=== PATIENT | male | born 1965 | race Two or more races ===

== ENCOUNTER 2024-11-04 15:35 | Inpatient (IN) | payer MEDICAID, SELFPAY ==
[2024-11-04] VITALS (8 sets, daily range): BP systolic 104–163; BP diastolic 74–90; PULSE 100–110; RESP 18–42; TEMP 36.6–37.7; O2SAT 90–95; BMI 30.4
--- NOTE | 2024-11-04 15:44 | XR_ITS ---
Examination: CTA chest with intravenous contrast 2-D reconstructions 3-D reconstructions, vascular Date and time of exam: November 04, 2024 1758 hours INDICATIONS: Shortness of breath chest pain beginning 5 days ago CTDI: vol (mGy) 24.2 DLP: (mGycm) 459 Technique: Multiple axial sections of the thorax have been obtained. 3 mm slice thickness, from below the hemidiaphragms to above the apices of the lungs. Mediastinal and lung density settings have been obtained. 2-D sagittal and coronal reconstructions. 3-D angiographic renderings, 3-D volume renderings, 3D post processing, vascular maximum intensity projections obtained. Contrast administered is 100 cc Isovue 370 intravenous. Low dose protocols were performed. One or more of the following dose reduction techniques were used; automated exposure control, adjustment of the mA and/or KV according to patient size, use of iterative reconstruction technique. Findings: No thoracic aortic aneurysm dilatation or dissection No pulmonary artery emboli Mild right hilar lymphadenopathy Bilateral pneumonia, severe and diffuse in the right lung Large left pleural effusion with atelectasis left lower lobe Liver irregular contour, no liver lesions Spleen is not enlarged Gallbladder partly visualized not distended No pancreatic mass The osseous structures are intact IMPRESSION: Negative for pulmonary emboli Bilateral pneumonia, severe and diffuse in the right lung Large left pleural effusion with atelectasis left lower lobe Primary hepatocellular disease
--- NOTE | 2024-11-04 15:44 | EKG_ITS ---
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
--- NOTE | 2024-11-04 15:44 | XR_ITS ---
Examination: AP chest single view Technique one AP portable upright chest single view Date and time: November 04, thousand 25, 1546 hours INDICATIONS: Chest pain shortness of breath weakness today. FINDINGS: Extensive bilateral pneumonia Suspicious for significant left pleural fluid Moderate osteopenia Mild enlargement cardiac contour IMPRESSION: Extensive bilateral pneumonia, Consider ultrasound left hemithorax to confirm significant left pleural fluid
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
[2024-11-04 16:27] LABS: Basophils # (Auto) 0.1 Thou/mm3 (0.0-0.2); Basophils % (Auto) 0 % (0-2.5); Eosinophils # (Auto) 0.1 Thou/mm3 (0.0-0.5); Eosinophils % (Auto) 1 % (0-10); Hematocrit 35.4 % (41.0-53.0); Hemoglobin 11.0 g/dL (13.5-16.0); Immature Granulocytes Auto 0.12 Thou/mm3 (0.00-0.00); Lymphocytes # (Auto) 1.5 Thou/mm3 (1.0-4.8); Lymphocytes % (Auto) 10 % (10-50); Mean Corpuscular HGB Conc 31.1 g/dl (31.0-37.0); Mean Corpuscular Hemoglobin 26.6 pg (25.0-35.0); Mean Corpuscular Volume 86 fL (80-100); Monocytes # (Auto) 1.3 Thou/mm3 (0.0-0.8); Monocytes % (Auto) 10 % (0-12); Neutrophils # (Auto) 10.9 Thou/mm3 (1.8-7.7); Neutrophils % (Auto) 78 % (37-80); Nucleated Red Blood Cell # 0.13 Thou/mm3 (0.00-0.00); Nucleated Red Blood Cell % 1 /100 WBC (0); Platelet Count 293 Thou/mm3 (140-440); RDW Standard Deviation 46.2 fL (35.1-43.9); Red Blood Count 4.13 Miln/mm3 (4.50-5.90); White Blood Count 14.0 Thou/mm3 (3.8-10.6)
[2024-11-04 16:44] LABS: INR 1.3 (0.9-1.3); Partial Thromboplastin Time 32.5 Seconds (22.0-36.0); Prothrombin Time 13.5 Seconds (9.0-12.2)
[2024-11-04 16:48] LABS: Alanine Aminotransferase 134 U/L (10-49); Albumin, Serum 4.2 gm/dL (3.4-4.8); Albumin/Globulin Ratio 1.4 (1.2-2.2); Alkaline Phosphatase 139 U/L (46-116); Anion Gap 12 (7-16); Aspartate Amino Transferase 102 U/L (0-34); B-Type Natriuretic Peptide 553 pg/mL (0-100); BUN/Creatinine Ratio 17 Ratio (12-20); Bilirubin,Total 1.0 mg/dL (0.3-1.2); Blood Urea Nitrogen 19 mg/dL (9-23); Calcium 8.7 mg/dL (8.3-10.6); Calcium (Corrected) 8.7 mg/dL (8.5-10.1); Carbon Dioxide 23.6 mMol/L (20.0-31.0); Chloride 104 mMol/L (98-107); Creatinine (Component) 1.1 mg/dL (0.6-1.3); Estimated Creatinine Clearance 88.2 mL/min (>60); Globulin 2.9 gm/dL (2.3-3.5); Glucose 152 mg/dL (74-106); Lipase 55 U/L (12-53); Magnesium 1.7 mg/dL (1.6-2.6); Osmolality,Calculated 284 (275-295); Potassium 4.0 mMol/L (3.4-5.1); Sodium 140 mMol/L (136-145); Total Protein 7.1 gm/dL (5.7-8.2); eGFR > 60 See Note
[2024-11-04 16:51] LABS: Collection Type, Urine Clean Catch
[2024-11-04] MEDS: DEXAMETHASONE SOD PHOS INJ 4 MG/ML VIAL IVP (16:54)
[2024-11-04] MEDS: cefTRIAXone/D5w 1gm IV premix 1 GM/50 ML BAG IV (16:54)
[2024-11-04] MEDS: OSELTAMIVIR 75 MG CAPSULE PO (16:54)
[2024-11-04 17:03] LABS: Bacteria,Urine Rare; Bilirubin,Urine Negative (Negative); Blood,Urine 1+ (Negative); Clarity,Urine Clear (Clear/Hazy); Color,Urine Yellow (Lt Yel-Yel); Glucose, Urine Trace (Negative); Ketones,Urine Negative (Negative); Leukocyte Esterase,Urine Negative (Negative); Nitrite,Urine Negative (Negative); PH,Urine 6.0 (5.0-7.0); Protein,Urine 2+ (Neg - Trace); RBC,Urine 5 /hpf (0-3); Specific Gravity,Urine 1.031 (1.001-1.035); Squamous Epithelial Cell,Urine < 1 /hpf (0-5); Urobilinogen,Urine 4.0 mg/dL (0.0-1.0); WBC,Urine 12 /hpf (0-5)
[2024-11-04 17:05] LABS: Culture Indicated,Urine Yes
[2024-11-04 17:05] LABS: Troponin I 0.415 ng/mL (0.0-0.045)
[2024-11-04] MEDS: ASPIRIN 81 MG CHEW 324 MG PO (18:09)
[2024-11-04] MEDS: AZITHROMYCIN INJ 500 MG in SODIUM CHLORIDE 0.9% 250 ML 250 ML 250 MG IV (18:09)
--- NOTE | 2024-11-04 18:37 | PD.RESEVENT ---
Documentation for date of: 11/04/24 Event Note Event Note: Received call from ED regarding admission. 59 y/o M who came with hypoxia, tachycardia and found to be Flu B +, there was concern for PE and ED ordered CTA chest. Results came back negative for PE, however results came back around 6:30pm, will sign the patient out to night team. Case discussed with my attending Dr. Aldair Chowdhury MD PGY-2
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
--- NOTE | 2024-11-04 23:34 | PC.RT ---
sputum sent to lab @ [id number]
[2024-11-05] VITALS (10 sets, daily range): BP systolic 115–146; BP diastolic 75–88; PULSE 90–108; RESP 17–36; TEMP 36.1–37.7; O2SAT 91–98
--- NOTE | 2024-11-05 00:19 | XR_ITS ---
Examination: Ultrasound-guided left thoracentesis Ultrasound right hemithorax Ultrasound left hemithorax Date and time: November 05, 2024 1244 hours INDICATIONS: Difficulty breathing this week, large left pleural effusion on CT chest study November 04, 2024 TECHNIQUE AND FINDINGS: Sonographic images right and left hemithoraces demonstrate large left pleural fluid accumulation Informed consent provided. Timeout performed. Skin prepped over the left hemithorax and sterile drape applied hand hygiene ultrasound sterile technique Utilizing ultrasonographic guidance 5 [place] catheter placed in the left pleural space 2300 cc sanguinous fluid removed IMPRESSION: Successful ultrasound-guided left thoracentesis
[2024-11-05] MEDS: INSULIN LISPRO (AdmeLOG) 1 UNIT/0.01 ML UNIT SC (00:26)
[2024-11-05 01:21] LABS: Lactate (Lactic Acid) 1.6 mMol/L (0.4-2.0)
[2024-11-05 01:32] LABS: Base Excess 2 (-3-3); HCO3 27 mEq/L (20-26); Inspired Oxygen, FIO2 21 %; O2 Saturation 93 % (91-98); PCO2 45 mmHg (32.0-48.0); PO2 67 mmHg (83-108); pH, Arterial 7.39 (7.35-7.45)
[2024-11-05 01:33] LABS: Allen Test Performed/OK; Puncture Site Right Radial
[2024-11-05 01:42] LABS: Troponin I 0.178 ng/mL (0.0-0.045)
[2024-11-05 06:51] LABS: Basophils # (Auto) 0.0 Thou/mm3 (0.0-0.2); Basophils % (Auto) 0 % (0-2.5); Eosinophils # (Auto) 0.0 Thou/mm3 (0.0-0.5); Eosinophils % (Auto) 0 % (0-10); Hematocrit 32.9 % (41.0-53.0); Hemoglobin 10.3 g/dL (13.5-16.0); Immature Granulocytes Auto 0.13 Thou/mm3 (0.00-0.00); Lymphocytes # (Auto) 1.1 Thou/mm3 (1.0-4.8); Lymphocytes % (Auto) 8 % (10-50); Mean Corpuscular HGB Conc 31.3 g/dl (31.0-37.0); Mean Corpuscular Hemoglobin 26.8 pg (25.0-35.0); Mean Corpuscular Volume 86 fL (80-100); Monocytes # (Auto) 1.2 Thou/mm3 (0.0-0.8); Monocytes % (Auto) 9 % (0-12); Neutrophils # (Auto) 11.2 Thou/mm3 (1.8-7.7); Neutrophils % (Auto) 82 % (37-80); Nucleated Red Blood Cell # 0.07 Thou/mm3 (0.00-0.00); Nucleated Red Blood Cell % 1 /100 WBC (0); Platelet Count 221 Thou/mm3 (140-440); RDW Standard Deviation 46.5 fL (35.1-43.9); Red Blood Count 3.85 Miln/mm3 (4.50-5.90); White Blood Count 13.8 Thou/mm3 (3.8-10.6)
[2024-11-05 07:19] LABS: Alanine Aminotransferase 98 U/L (10-49); Albumin, Serum 3.5 gm/dL (3.4-4.8); Albumin/Globulin Ratio 1.5 (1.2-2.2); Alkaline Phosphatase 132 U/L (46-116); Anion Gap 8 (7-16); Aspartate Amino Transferase 51 U/L (0-34); BUN/Creatinine Ratio 24 Ratio (12-20); Bilirubin,Total 0.5 mg/dL (0.3-1.2); Blood Urea Nitrogen 19 mg/dL (9-23); Calcium 8.1 mg/dL (8.3-10.6); Calcium (Corrected) 8.5 mg/dL (8.5-10.1); Carbon Dioxide 28.1 mMol/L (20.0-31.0); Chloride 105 mMol/L (98-107); Creatinine (Component) 0.8 mg/dL (0.6-1.3); Estimated Creatinine Clearance 120.9 mL/min (>60); Globulin 2.3 gm/dL (2.3-3.5); Glucose 151 mg/dL (74-106); Osmolality,Calculated 286 (275-295); Potassium 4.9 mMol/L (3.4-5.1); Sodium 141 mMol/L (136-145); Total Protein 5.8 gm/dL (5.7-8.2); eGFR > 60 See Note
[2024-11-05 07:21] LABS: Glucose Estimated Average 143 mg/dL (80-131); Hemoglobin A1C 6.6 % Hgb (4.8-6.0)
[2024-11-05 08:17] LABS: Hepatitis A Antibody IgM Non Reactive (Non React); Hepatitis B Core Antibody IgM Non Reactive (Non React); Hepatitis B Surface Antigen Non Reactive (Non React); Hepatitis C Antibody Non Reactive (Non React)
[2024-11-05] MEDS: OSELTAMIVIR 75 MG CAPSULE PO ×2 (08:56→21:37)
[2024-11-05] MEDS: PANTOPRAZOLE 40 MG TABLET PO (08:56)
[2024-11-05] MEDS: ENOXAPARIN SOD INJ 40 MG/0.4 ML SYRINGE SC (08:57)
--- NOTE | 2024-11-05 10:40 | ESPR_ITS ---
<Statement entered by Carolina Billings MD - 11/05/24 15:26> Patient was seen and examined at bedside. I agree on the assessment and plan on this note as documented by resident Judith Herring PGY1. Admitted overnight for acute hypoxic respiratory failure secondary to superimposed bacterial pneumonia, was also tested positive for flu. There is also concern of possible fluid overload status, 2+ bilateral lower extremity edema noted on physical exam, patient received thoracentesis today about 2.3 L fluid removed, ordered Lasix 20 mg IVP x 1 after, strict PETEY's, continue antibiotics ceftriaxone and azithromycin. Will continue to monitor oxygen requirement, will consider placing patient on BiPAP overnight if patient's oxygen requirement continues to remain high. Repeat x-ray after thoracentesis does show improvement, lung has reexpanded, right lung does show possible reexpansion edema versus underlying cardiogenic edema, patient will benefit from diuresis. Pending echocardiogram, to rule out causes of cardiogenic edema. Patient's blood glucose is well-controlled with sliding scale insulin, does have transaminitis which is improving. Effusion likely exudative, pending cytology. Disposition telemetry, requiring high supplemental oxygen, will continue to titrate down, continue IV antibiotics. Will consider pulmonology consult if worsening respiratory status. Case discussed with attending Dr. Adrianna Billings MD PGY-2 Documentation for date of: 11/05/24 Subjective Subjective Interval history: Mister Mayorga, 59-year-old male past medical history of type 2 diabetes, gastritis, presented to the ED by PCP for further evaluation of an hypoxic episode management. Per patient only had when he fell down while changing a light bulb, strike the left side of the chest with a bicycle. Initially there was no chest pain or shortness of breath. PCP recommend albuterol inhaler, for which patient felt no relief, return to the PCP 2 days s/p fall developed of chest pain and shortness of breath. Patient returned to PCP, during the visit patient was hypoxic O2 sat reading 46%, repeat 50% so was sent to the ED by PCP. In the ED patient was admitted for evaluation and management of hypoxic respiratory failure. Overnight CT chest was done, showed large pleural effusion with atelectasis of the left lower lobe, chest x-ray showed extensive bilateral pneumonia. ABG result was normal. Troponin elevated but trending downward from 0.415 to 0.17, BNP 553(elevated). Patient is being stabilized on OxyMask 15 L. Today The patient was seen and examined at bedside. Patient was sitting in a tripod position with 15 L OxyMask saturating at 92%. Patient endorses shortness of breath that worses with walking. Currently breathing better with the oxygen. He denies chest pain, dizziness, abdominal pain, nausea and vomiting. Exam Vital Signs Temp Pulse Resp BP Pulse Ox O2 Del Method O2 Flow Rate 97.7 F 90 20 115/84 92 L Oxy Mask 15 11/05/24 08:00 11/05/24 08:00 11/05/24 08:00 11/05/24 08:00 11/05/24 08:00 11/05/24 08:00 11/05/24 08:00 Narrative Exam Physical Exam: General: Alert, mild respiratory acute distress. Skin: Warm, dry, intact, no obvious rash. HEENT: Normocephalic, atraumatic.Normal conjunctiva, PERRL,no scleral icterus Cardiovascular: Regular rate and rhythm, no murmur, +S1/S2. Respiratory: No use of accessory muscle, decreased breath sounds on the left lower base, rhonchi on the right Gastrointestinal: Soft, nontender, non-distended. No guarding or rebound tenderness. Extremities: +1 bilateral edema, no cyanosis, no clubbing. 2+ radial pulse bilaterally, 2+ pedal pulse bilaterally. Neuro: No focal deficits observed. Conversant, moving all extremities. No overt cerebellar signs/incoordination. Psychiatric: Cooperative, appropriate affect. Objective Labs 11/05/24 06:15 11/05/24 06:15 Labs: Laboratory Results - last 24 hr 11/04/24 11/04/24 11/05/24 16:07 16:37 01:02 WBC 14.0 H RBC 4.13 L Hgb 11.0 L Hct 35.4 L MCV 86 MCH 26.6 MCHC 31.1 RDW Std Deviation 46.2 H Plt Count 293 Neut % (Auto) 78 Lymph % (Auto) 10 Cavalier % (Auto) 10 Eos % (Auto) 1 Baso % (Auto) 0 Neut # (Auto) 10.9 H Lymph # (Auto) 1.5 Cavalier # (Auto) 1.3 H Eos # (Auto) 0.1 Baso # (Auto) 0.1 Immature Gran # (Auto) 0.12 H Absolute Nucleated RBC 0.13 H Immature Gran % 1 H Nucleated RBC % 1 H PT 13.5 H INR 1.3 APTT 32.5 Puncture Site ABG pH ABG pCO2 ABG pO2 ABG HCO3 ABG O2 Saturation ABG Base Excess FiO2 Sodium 140 Potassium 4.0 Chloride 104 Carbon Dioxide 23.6 Anion Gap 12 BUN 19 Creatinine 1.1 Estim Creat Clear Calc 88.2 eGFR > 60 BUN/Creatinine Ratio [address] Glu mg/dL Hemoglobin A1c Calculated Osmolality 284 Lactic Acid 1.6 Calcium 8.7 Corrected Calcium 8.7 Phosphorus Magnesium 1.7 Total Bilirubin 1.0 AST 102 H ALT 134 H Alkaline Phosphatase 139 H Troponin I 0.415 H* 0.178 H* D B-Natriuretic Peptide 553 H* Total Protein 7.1 Albumin 4.2 Globulin 2.9 Albumin/Globulin Ratio 1.4 Lipase 55 H Ur Collection Type Clean Catch Urine Color Yellow Urine Clarity Clear Urine pH 6.0 Ur Specific [place] 1.031 Urine Protein 2+ A Urine Glucose (UA) Trace Urine Ketones Negative Urine Blood 1+ A Urine Nitrite Negative Urine Bilirubin Negative Urine Urobilinogen (Auto) 4.0 Ur Leukocyte Esterase Negative Urine RBC 5 H Urine WBC 12 H Ur Squamous Epith Cells < 1 Urine Bacteria Rare Ur Culture Indicated? Yes Hepatitis A IgM Ab Hep Bs Antigen Hep B Core IgM Ab Hepatitis C Antibody 11/05/24 11/05/24 01:24 06:15 WBC 13.8 H RBC 3.85 L Hgb 10.3 L Hct 32.9 L MCV 86 MCH 26.8 MCHC 31.3 RDW Std Deviation 46.5 H Plt Count 221 D Neut % (Auto) 82 H Lymph % (Auto) 8 L Cavalier % (Auto) 9 Eos % (Auto) 0 Baso % (Auto) 0 Neut # (Auto) 11.2 H Lymph # (Auto) 1.1 Cavalier # (Auto) 1.2 H Eos # (Auto) 0.0 Baso # (Auto) 0.0 Immature Gran # (Auto) 0.13 H Absolute Nucleated RBC 0.07 H Immature Gran % 1 H Nucleated RBC % 1 H PT INR APTT Puncture Site Right Radial ABG pH 7.39 ABG pCO2 45 ABG pO2 67 L ABG HCO3 27 H ABG O2 Saturation 93 ABG Base Excess 2 FiO2 21 Sodium 141 Potassium 4.9 D Chloride 105 Carbon Dioxide 28.1 Anion Gap 8 BUN 19 Creatinine 0.8 Estim Creat Clear Calc 120.9 eGFR > 60 BUN/Creatinine Ratio 24 H Glucose [address] Glu mg/dL 143 H Hemoglobin A1c 6.6 H Calculated Osmolality 286 Lactic Acid Calcium 8.1 L Corrected Calcium 8.5 Phosphorus Cancelled Magnesium Cancelled Total Bilirubin 0.5 D AST 51 H ALT 98 H Alkaline Phosphatase 132 H Troponin I Cancelled B-Natriuretic Peptide Total Protein 5.8 Albumin 3.5 D Globulin 2.3 Albumin/Globulin Ratio 1.5 Lipase Ur Collection Type Urine Color Urine Clarity Urine pH Ur Specific [place] Urine Protein Urine Glucose (UA) Urine Ketones Urine Blood Urine Nitrite Urine Bilirubin Urine Urobilinogen (Auto) Ur Leukocyte Esterase Urine RBC Urine WBC Ur Squamous Epith Cells Urine Bacteria Ur Culture Indicated? Hepatitis A IgM Ab Non Reactive Hep Bs Antigen Non Reactive Hep B Core IgM Ab Non Reactive Hepatitis C Antibody Non Reactive ABG Interpretation ABG results: 11/05/24 01:24 ABG pH 7.39 ABG pCO2 45 ABG pO2 67 L ABG HCO3 27 H ABG O2 Saturation 93 ABG Base Excess 2 Quality Measures Quality Measures VTE prophylaxis Assessment & Plan Assessment Current Active Medications: Generic Name Dose Route Start Last Admin Trade Name Freq PRN Reason Stop Dose Admin Acetaminophen 650 mg 11/04/24 22:46 Acetaminophen 325 Mg Tablet PO 12/04/24 22:45 Q6H PRN Fever >100.4 Acetaminophen 650 mg 11/04/24 22:46 Acetaminophen 325 Mg Tablet PO 12/04/24 22:45 Q6H PRN PAIN SCALE 1-3 (mild Hydrocodone Bitart/Acetaminophen 1 tab 11/04/24 22:46 Hydrocodone/Apap 5/325 Tablet PO 11/09/24 22:45 Q4HR PRN PAIN SCALE 4-6 (Moderate Dextrose 25 ml 11/04/24 23:12 Dextrose 50%-Water Inj 50 Ml Syringe IV 12/04/24 23:11 Q15MIN PRN BG 50-70 responsive npo pt Dextrose 50 ml 11/04/24 23:12 Dextrose 50%-Water Inj 50 Ml Syringe IV 12/04/24 23:11 Q15MIN PRN BG <50 OR BG <70 & pt unresponsive Enoxaparin Sodium 40 mg 11/05/24 09:00 11/05/24 08:57 Enoxaparin Sod Inj 40 Mg/0.4 Ml Syringe SC 11/19/24 08:59 40 mg QDAY CHRISTA Administration Glucagon 1 mg 11/04/24 23:12 Glucagon Inj 1 Mg Vial IM Q15MIN PRN BG <70, and no IV access Azithromycin 500 mg/ Sodium 250 mls @ 250 mls/hr 11/05/24 14:00 Chloride IV 11/12/24 13:59 QDAY@1400 CHRISTA Ceftriaxone Sodium/Dextrose 2 gm in 50 mls @ 100 mls/hr 11/05/24 14:00 Rocephin/D5w 2gm IV 11/12/24 13:59 QDAY@1400 CHRISTA Insulin Human Lispro 0 unit 11/05/24 00:00 11/05/24 06:10 Insulin Lispro (Admelog) 1 Unit/0.01 Ml Unit SC 12/05/24 00:00 Not Given Q6HR CHRISTA Protocol Ondansetron HCl 4 mg 11/04/24 22:46 Ondansetron Inj 2 Mg/Ml Inj 2 Ml IVP 12/04/24 22:45 Q6H PRN NAUSEA OR VOMITING Protocol Oseltamivir Phosphate 75 mg 11/05/24 09:00 11/05/24 08:56 Oseltamivir 75 Mg Capsule PO 11/12/24 08:59 75 mg BID CHRISTA Administration Pantoprazole Sodium 40 mg 11/05/24 09:00 11/05/24 08:56 Pantoprazole 40 Mg Tablet PO 12/05/24 08:59 40 mg QDAY CHRISTA Administration Sennosides 1 tab 11/04/24 22:46 Senna Tablet PO 12/04/24 22:45 QDAY PRN constipation Protocol Plan History of present with history of type 2 diabetes, gastritis, presented to the ED for further evaluation and management of hypoxia # Acute hypoxic respiratory failure on 15 L OxyMask # Superimposed pneumonia likely 2/2 influenza # Influenza B positive On admision, positive Flu B test. Severe hypoxia (SpO2 45-50% at PCP), currently requiring 15L OxyMask, patient reports shortness of breath unrelieved by albuterol nebulizer. CXR shows diffuse bilateral pneumonia (R>L), likely viral + possible bacterial superinfection. 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 This occupational exposure may contribute to increased risk of respiratory infection including pneumonia. Plan - Pending echo - Started on antibiotics azithromycin 500 mg IV daily - Ordered Procalcitonin - Continue oseltamivir 75 p.o. twice daily - Droplet contact precautions - Pending urine culture, blood culture, sputum culture # left Pleural Effusion with atelectasis # Likely multifactorial pulmonary versus cardiac CT chest showed bilateral pneumonia, less severe and diffuse in the right lung. Also showed large left pleural effusion with atelectasis of left lower lobe. Patient BNP on admission was elevated 553, troponin was 0.415 downtrending to 0.178, concern for possible exacerbated cardiomyopathy. Plan - Ultrasound thoracentesis ordered- IR pending - Pending cytology studies - Ordered physical therapy - Continue to monitor monitor vital and respiratory status - Telemetry monitoring # Non- insulin depende Type 2 diabetes mellitus Patient is home medication Jardiance. A1c is 6.6, fingerstick blood glucose is 167 high. Plan - Insulin sliding scale - Continue to monitor glucose level and A1c -Hold on home meds -Pending med rec # Acute Liver injury Elevated AST (51),ALT (98), likely due to systemic illness, hypoxia, or viral etiology. Liver enlarged with irregular contour on CT scan. Plan: - Continue to trend LFTs - Avoid hepatotoxic drugs - Monitor for signs of liver dysfunction Hospital management: Lines: peripheral IV Diet: Carbohydrate consistent low Bowel: Senna GI prophylaxis: pantoprazole DVT prophylaxis: SCDs Disposition: telemetry, monitor O2 sat, on 15L OxyMask, CODE STATUS: Full code Patient seen and assessed under supervision of attending physician Dr. Rodas and discuss with senior resident Dr. Billings PGY-2 Judith Herring MD PGY-1, Internal Medicine Attending Provider Attestation/Addendum I, Nay Rodas DO, attest that I was physically present for the fuentes portions of the service and evaluated the patient with the resident and I reviewed and discussed the case with the resident and agree with the resident's findings and plans of care as documented above Patient seen and eval this a.m. He is on 15 L oxime mask, but in no acute distress. There are decreased breath sounds in the left chest. Patient states that only yesterday that he noticed that he had worsening dyspnea on exertion and unable to perform his daily activities of daily living. He had reported some chest pressure after he was trying to fix his grandsons bicycle. He did have a fall 2 weeks ago resulting in some left rib pain which she had contributed to the chest pressure. He denies any syncope, dizziness, nausea or vomiting, fevers or chills, recent sick contacts or travel. CT chest was reviewed with feeling large left pleural effusion and significant bilateral lung opacities secondary to pneumonia. There may be some underlying ILD as well. 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 Currently on azithromycin and Rocephin as well as flu due to concern for superimposed bacterial pneumonia in the setting of influenza. Patient likely will feel relief after thoracentesis and supplemental O2 can be titrated down. Recommend patient and family that patient have a repeat chest CT in 6 to 8 weeks after resolution of his symptoms to assess for any underlying interstitial lung disease versus COPD. Patient states that he quit smoking about 30 years ago. He denies any personal or family history of cardiac disease. He has some right lower extremity edema which he states he only noted yesterday. However, on exam, patient has trace peripheral edema bilateral lower extremities. Will follow-up with echocardiogram.
[2024-11-05 12:10] LABS: Cocci Serology, IgM Negative (Negative)
--- NOTE | 2024-11-05 13:10 | XR_ITS ---
Examination: PA chest single view TECHNIQUE: Upright PA chest single view Date and time: November 05, 2024 1318 hours Comparison November 04, 2024 INDICATIONS: Status post left thoracentesis. FINDINGS: No pneumothorax post thoracentesis Severe diffuse pneumonia in the right lung IMPRESSION:: No pneumothorax post thoracentesis
[2024-11-05 14:23] LABS: Pleural Fluid Appearance Bloody; Pleural Fluid Color Red; Pleural Fluid WBC 1888 /cmm
[2024-11-05 14:24] LABS: Pleural Fluid RBC 3480000 /cmm
[2024-11-05 14:25] LABS: Pleural Fluid Mononuclear 31 %; Pleural Fluid Polynuclear 69 %
[2024-11-05 14:48] LABS: Procalcitonin 0.19 ng/ml (0.0-0.49)
[2024-11-05 15:03] LABS: Amylase,Pleural Fluid 47 IU/L; Glucose,Pleural Fluid 132 mg/dL; LDH,Pleural Fluid 915 IU/L; Protein Total,Pleural Fluid 4.1 g/dL
[2024-11-05 15:44] LABS: LDH (Lactate Dehydrogenase) 444 U/L (120-246)
[2024-11-05] MEDS: FUROSEMIDE INJ 10 MG/ML VIAL 2 ML 20 MG IVP (16:45)
[2024-11-05] MEDS: cefTRIAXone/D5w 1gm IV premix 1 GM/50 ML BAG IV (16:47)
[2024-11-05] MEDS: AZITHROMYCIN INJ 500 MG in SODIUM CHLORIDE 0.9% 250 ML 250 ML 250 MG IV (16:55)
[2024-11-05] MEDS: ALBUTEROL/IPRATROPIUM (Duoneb) RT SOL 3 ML NEBU INH (18:47)
[2024-11-06] VITALS (10 sets, daily range): BP systolic 105–137; BP diastolic 74–82; PULSE 72–110; RESP 17–28; TEMP 36.6–37.2; O2SAT 93–98; BMI 30.2
[2024-11-06] MEDS: ALBUTEROL/IPRATROPIUM (Duoneb) RT SOL 3 ML NEBU INH ×4 (01:12→19:22)
[2024-11-06 05:58] LABS: Basophils # (Auto) 0.0 Thou/mm3 (0.0-0.2); Basophils % (Auto) 0 % (0-2.5); Eosinophils # (Auto) 0.3 Thou/mm3 (0.0-0.5); Eosinophils % (Auto) 3 % (0-10); Hematocrit 33.4 % (41.0-53.0); Hemoglobin 10.3 g/dL (13.5-16.0); Immature Granulocytes Auto 0.08 Thou/mm3 (0.00-0.00); Lymphocytes # (Auto) 1.2 Thou/mm3 (1.0-4.8); Lymphocytes % (Auto) 11 % (10-50); Mean Corpuscular HGB Conc 30.8 g/dl (31.0-37.0); Mean Corpuscular Hemoglobin 26.5 pg (25.0-35.0); Mean Corpuscular Volume 86 fL (80-100); Monocytes # (Auto) 1.1 Thou/mm3 (0.0-0.8); Monocytes % (Auto) 11 % (0-12); Neutrophils # (Auto) 7.8 Thou/mm3 (1.8-7.7); Neutrophils % (Auto) 74 % (37-80); Nucleated Red Blood Cell # 0.02 Thou/mm3 (0.00-0.00); Nucleated Red Blood Cell % 0 /100 WBC (0); Platelet Count 184 Thou/mm3 (140-440); RDW Standard Deviation 46.5 fL (35.1-43.9); Red Blood Count 3.89 Miln/mm3 (4.50-5.90); White Blood Count 10.5 Thou/mm3 (3.8-10.6)
[2024-11-06 06:21] LABS: Alanine Aminotransferase 71 U/L (10-49); Albumin, Serum 3.2 gm/dL (3.4-4.8); Albumin/Globulin Ratio 1.3 (1.2-2.2); Alkaline Phosphatase 130 U/L (46-116); Anion Gap 9 (7-16); Aspartate Amino Transferase 33 U/L (0-34); BUN/Creatinine Ratio 19 Ratio (12-20); Bilirubin,Total 0.7 mg/dL (0.3-1.2); Blood Urea Nitrogen 15 mg/dL (9-23); Calcium 7.8 mg/dL (8.3-10.6); Calcium (Corrected) 8.4 mg/dL (8.5-10.1); Carbon Dioxide 30.3 mMol/L (20.0-31.0); Chloride 101 mMol/L (98-107); Creatinine (Component) 0.8 mg/dL (0.6-1.3); Estimated Creatinine Clearance 120.9 mL/min (>60); Globulin 2.5 gm/dL (2.3-3.5); Glucose 158 mg/dL (74-106); Magnesium 1.9 mg/dL (1.6-2.6); Osmolality,Calculated 283 (275-295); Phosphorous 2.6 mg/dL (2.4-5.1); Potassium 3.9 mMol/L (3.4-5.1); Sodium 140 mMol/L (136-145); Total Protein 5.7 gm/dL (5.7-8.2); eGFR > 60 See Note
[2024-11-06] MEDS: PANTOPRAZOLE 40 MG TABLET PO (09:03)
[2024-11-06] MEDS: cefTRIAXone/D5w 1gm IV premix 1 GM/50 ML BAG IV (09:03)
[2024-11-06] MEDS: OSELTAMIVIR 75 MG CAPSULE PO ×2 (09:03→20:30)
[2024-11-06] MEDS: ENOXAPARIN SOD INJ 40 MG/0.4 ML SYRINGE SC (09:03)
--- NOTE | 2024-11-06 11:08 | PC.SS ---
Follow up note: On 10 liters of O2. On IV antibiotic. Pt will return home upon dc.
--- NOTE | 2024-11-06 11:33 | PC.SS ---
Late note 11-05-24: SS met with patient regarding d/c plan. Pt is alert/oriented. Pt was admitted for SOB. Pt states his demographic information is not correct on his facesheet. SS has called Angela from patient registration to update patient's facesheet with his correct address. Pt resides with , dtr, and grandchildren. Pt ambulates independently without assistance or DME. Pt is ok with all ADLs. Pt does not utilize O2 at home. Pt is currently on 13 liters of O2. Patient?s pharmacy of choice is [facility] in [place]. Pt named his , Thais Schaefer medical decision maker if he is unable. Patient?s choice is to return home upon d/c. Pt followed up with PCP in July or August DC Plan: Return home Next of Kin: Thais Schaefer, , phone# [phone] PCP: Alfredo Ernst from [facility] Address: [address] [place] [address]. [id number]
[2024-11-06 12:34] LABS: Cocci Serology, IgG Negative (Negative)
[2024-11-06] MEDS: INSULIN LISPRO (AdmeLOG) 1 UNIT/0.01 ML UNIT SC ×2 (12:53→20:47)
[2024-11-06 13:10] LABS: HIV (1&2) Antibody Rapid Non-Reactive
--- NOTE | 2024-11-06 13:28 | ESPR_ITS ---
<Statement entered by Duong Varela MD - 11/11/24 14:33> I reviewed above note and agree with findings and plans. I have also personally examined the patient with medicine team and went over assessment and plan with medical team including creative services intern and resident physician. <Statement entered by Carolina Billings MD - 11/06/24 16:41> Patient was seen and examined at bedside. I agree on the assessment and plan on this note as documented by resident Judith Herring PGY1. Patient seen and examined at bedside, patient received thoracentesis yesterday, respiratory status is improved significantly postthoracentesis currently requiring 5 L on oxygen mask at bedside. Reports that he was able to sleep well last night, denies any orthopnea or PND. Patient has underlying exudative pleural effusion, pending cytology. We will continue Tamiflu and IV antibiotics for underlying fluid and bacterial infection. Pending cultures, will continue sliding scale insulin for diabetes management. Transaminitis downtrending. Patient is fairly stable, anticipate discharge in the next 24 to 48 hours if respirtory status improves. Case discussed with attending Dr. Avery Billings MD PGY-2 Documentation for date of: 11/06/24 Subjective Subjective Interval history: 59-year-old male past medical history of diabetes type 2, gastritis presented by PCP for management of low O2 saturation. Admitted for acute hypoxic respiratory failure and further management. Overnight patient was able to sleep comfortably flat in bed, endorses improved shortness of breath s/p thoracentesis. The patient was weaned off oxygen from 15L to to 5L OxiMax saturating appropriately. Vitals are stable. Labs reviewed and no significant changes from yesterday. Exam Vital Signs Temp Pulse Resp BP Pulse Ox O2 Del Method O2 Flow Rate 98.4 F 94 18 105/75 93 L Oxy Mask 10 11/06/24 08:00 11/06/24 12:48 11/06/24 12:48 11/06/24 08:00 11/06/24 12:48 11/06/24 08:00 11/06/24 12:48 Narrative Exam Physical Exam: General: Alert, no acute distress. Skin: Warm, dry, intact, no obvious rash. HEENT: Normocephalic, atraumatic.Normal conjunctiva, PERRL,no scleral icterus Cardiovascular: Regular rate and rhythm, no murmur, +S1/S2. Respiratory: Crackles more prominent on the right, no use of accessory muscle. Gastrointestinal: firm, nontender, non-distended. No guarding or rebound tenderness. Extremities: No edema, no cyanosis, no clubbing. 2+ radial pulse bilaterally, 2+ pedal pulse bilaterally. Neuro: No focal deficits observed. Conversant, moving all extremities. No overt cerebellar signs/incoordination. Psychiatric: Cooperative, appropriate affect. Objective Labs 11/06/24 04:35 11/06/24 04:35 Labs: Laboratory Results - last 24 hr 11/04/24 11/05/24 11/05/24 16:20 06:15 13:33 WBC RBC Hgb Hct MCV MCH MCHC RDW Std Deviation Plt Count Neut % (Auto) Lymph % (Auto) Starke % (Auto) Eos % (Auto) Baso % (Auto) Neut # (Auto) Lymph # (Auto) Star[place] # (Auto) Eos # (Auto) Baso # (Auto) Immature Gran # (Auto) Absolute Nucleated RBC Immature Gran % Nucleated RBC % Sodium Potassium Chloride Carbon Dioxide Anion Gap BUN Creatinine Estim Creat Clear Calc eGFR BUN/Creatinine Ratio Glucose Calculated Osmolality Calcium Corrected Calcium Phosphorus Magnesium Total Bilirubin AST ALT Alkaline Phosphatase Lactate Dehydrogenase 444 H Total Protein Albumin Globulin Albumin/Globulin Ratio Procalcitonin 0.19 Pleural Color Red Pleural Appearance Bloody Pleural WBC 1888 Pleural RBC [id number] Pleural Polynuclear WBC 69 Pleural Mononuclear WBC 31 Pleural Total Protein 4.1 Pleural LDH 915 Pleural Glucose 132 Pleural Amylase 47 Coccidioides IgG Ab Negative HIV 1&2 Antibody Rapid 11/06/24 04:35 WBC 10.5 RBC 3.89 L Hgb 10.3 L Hct 33.4 L MCV 86 MCH 26.5 MCHC 30.8 L RDW Std Deviation 46.5 H Plt Count 184 D Neut % (Auto) 74 Lymph % (Auto) 11 Starke % (Auto) 11 Eos % (Auto) 3 Baso % (Auto) 0 Neut # (Auto) 7.8 H Lymph # (Auto) 1.2 Starke # (Auto) 1.1 H Eos # (Auto) 0.3 Baso # (Auto) 0.0 Immature Gran # (Auto) 0.08 H Absolute Nucleated RBC 0.02 H Immature Gran % 1 H Nucleated RBC % 0 Sodium 140 Potassium 3.9 D Chloride 101 Carbon Dioxide 30.3 Anion Gap 9 BUN 15 Creatinine 0.8 Estim Creat Clear Calc 120.9 eGFR > 60 BUN/Creatinine Ratio 19 Glucose 158 H Calculated Osmolality 283 Calcium 7.8 L Corrected Calcium 8.4 L Phosphorus 2.6 Magnesium 1.9 Total Bilirubin 0.7 AST 33 ALT 71 H Alkaline Phosphatase 130 H Lactate Dehydrogenase Total Protein 5.7 Albumin 3.2 L Globulin 2.5 Albumin/Globulin Ratio 1.3 Procalcitonin Pleural Color Pleural Appearance Pleural WBC Pleural RBC Pleural Polynuclear WBC Pleural Mononuclear WBC Pleural Total Protein Pleural LDH Pleural Glucose Pleural Amylase Coccidioides IgG Ab HIV 1&2 Antibody Rapid Non-Reactive ABG Interpretation ABG results: 11/05/24 01:24 ABG pH 7.39 ABG pCO2 45 ABG pO2 67 L ABG HCO3 27 H ABG O2 Saturation 93 ABG Base Excess 2 Quality Measures Quality Measures VTE prophylaxis Assessment & Plan Assessment Current Active Medications: Generic Name Dose Route Start Last Admin Trade Name Freq PRN Reason Stop Dose Admin Acetaminophen 650 mg 11/04/24 22:46 Acetaminophen 325 Mg Tablet PO 12/04/24 22:45 Q6H PRN Fever >100.4 Acetaminophen 650 mg 11/04/24 22:46 Acetaminophen 325 Mg Tablet PO 12/04/24 22:45 Q6H PRN PAIN SCALE 1-3 (mild Hydrocodone Bitart/Acetaminophen 1 tab 11/04/24 22:46 Hydrocodone/Apap 5/325 Tablet PO 11/09/24 22:45 Q4HR PRN PAIN SCALE 4-6 (Moderate Albuterol/Ipratropium 3 ml 11/05/24 19:00 11/06/24 12:48 Albuterol/Ipratropium (Duoneb) Rt Genny 3 Ml Nebu INH 12/05/24 18:59 3 ml Q6HRRT CHRISTA Administration Dextrose 25 ml 11/04/24 23:12 Dextrose 50%-Water Inj 50 Ml Syringe IV 12/04/24 23:11 Q15MIN PRN BG 50-70 responsive npo pt Dextrose 50 ml 11/04/24 23:12 Dextrose 50%-Water Inj 50 Ml Syringe IV 12/04/24 23:11 Q15MIN PRN BG <50 OR BG <70 & pt unresponsive Enoxaparin Sodium 40 mg 11/05/24 09:00 11/06/24 09:03 Enoxaparin Sod Inj 40 Mg/0.4 Ml Syringe SC 11/19/24 08:59 40 mg QDAY CHRISTA Administration Glucagon 1 mg 11/04/24 23:12 Glucagon Inj 1 Mg Vial IM Q15MIN PRN BG <70, and no IV access Azithromycin 500 mg/ Sodium 250 mls @ 250 mls/hr 11/05/24 14:00 11/05/24 16:55 Chloride IV 11/08/24 13:59 250 mls/hr QDAY@1400 CHRISTA Administration Ceftriaxone Sodium/Dextrose 1 gm in 50 mls @ 100 mls/hr 11/05/24 16:08 11/06/24 09:03 Rocephin/D5w 1gm Iv Premix IV 11/12/24 16:07 100 mls/hr QDAY CHRISTA Administration Insulin Human Lispro 0 unit 11/05/24 00:00 11/06/24 12:53 Insulin Lispro (Admelog) 1 Unit/0.01 Ml Unit SC 12/05/24 00:00 1 unit Q6HR CHRISTA Administration Protocol Ondansetron HCl 4 mg 11/04/24 22:46 Ondansetron Inj 2 Mg/Ml Inj 2 Ml IVP 12/04/24 22:45 Q6H PRN NAUSEA OR VOMITING Protocol Oseltamivir Phosphate 75 mg 11/05/24 09:00 11/06/24 09:03 Oseltamivir 75 Mg Capsule PO 11/12/24 08:59 75 mg BID CHRISTA Administration Pantoprazole Sodium 40 mg 11/05/24 09:00 11/06/24 09:03 Pantoprazole 40 Mg Tablet PO 12/05/24 08:59 40 mg QDAY CHRISTA Administration Sennosides 1 tab 11/04/24 22:46 Senna Tablet PO 12/04/24 22:45 QDAY PRN constipation Protocol Plan History of with of type 2 diabetes, gastritis, presented to the ED for further evaluation and management of hypoxia. # Acute acute hypoxic respiratory failure 2/2 superimposed bacterial pneumonia #Influenza Pneumonitis # Influenza B positive On admision, positive Flu B test. Severe hypoxia (SpO2 45-50% at PCP), currently requiring 15L OxyMask, patient reports shortness of breath unrelieved by albuterol nebulizer. CXR shows diffuse bilateral pneumonia (R>L), likely viral + possible bacterial superinfection. 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 This occupational exposure may contribute to increased risk of respiratory infection including pneumonia. Plan - Continue Tamiflu 75 p.o. 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 Also showed large left pleural effusion with atelectasis of left lower lobe. Patient BNP on admission was elevated 553, troponin was 0.415 downtrending to 0.178, concern for possible exacerbated cardiomyopathy. Thoracentesis drained 2.6 L serosanguinous. Pleural fuid analysis, per light criteria was exudative pleural effusion. Repeat x-ray after thoracentesis does show improvement. Plan - Pending cytology analysis - Pending Echo to r/o cardiogenic edema - Continue to monitor vital and expiratory status - Continue antibiotic management - Continue incentive spirometry treatment - Strict ins and outs # Non- insulin depende Type 2 diabetes mellitus Patient is home medication Jardiance. A1c is on admsiion was 6.6 and fingerstick blood glucose is 167 high. Blood glucose elevated but well- controlled. Plan - Continue insulin sliding scale - Continue to monitor glucose level # Acute Liver injury # Metabolic dysfunction -Associated hepatic liver disease (MASLD) Elevated AST (51),ALT (98), likely due to systemic illness, hypoxia, or viral etiology. Liver enlarged with irregular contour on CT scan. Patient meets criteria for MASLD due to the presence of elevated liver enzyme but stable, elevated BMI, and documented history of diabetes, all of which are consistent underlie metabolic dysfunction. Plan: - Continue to trend LFTs - Avoid hepatotoxic drugs - Monitor for signs of liver dysfunction Hospital management: Lines: peripheral IV Diet: Carb consistent low Bowel: Senna GI prophylaxis: Protonix DVT prophylaxis: SCDs Disposition: Telemetry, monitor respiratory status on 5L OxyMask CODE STATUS: Full code Patient seen and assessed under supervision of attending physician Dr. Varela and discuss with senior resident Dr. Billings PGY-2 Judith Herring MD PGY-1, Internal Medicine
--- NOTE | 2024-11-06 14:19 | PC.PT ---
PT eval only. Patient is I with bed mobility and transfers and ambulation without AD.
[2024-11-06] MEDS: AZITHROMYCIN INJ 500 MG in SODIUM CHLORIDE 0.9% 250 ML 250 ML 250 MG IV (14:38)
--- NOTE | 2024-11-06 21:53 | PC.NURSE ---
Attempted to get home medication list, but was unable to as pt could not recall medication names. Unable to reach regarding home med list.
--- NOTE | 2024-11-06 23:38 | PC.NURSE ---
notified Dr. Schwarz that patient is having multiple pvc's and in and out of bigemeny
[2024-11-07] VITALS (10 sets, daily range): BP systolic 113–129; BP diastolic 65–82; PULSE 55–98; RESP 18–21; TEMP 36.2–37.5; O2SAT 91–99; BMI 28.2; BMI 28.1
[2024-11-07] MEDS: ALBUTEROL/IPRATROPIUM (Duoneb) RT SOL 3 ML NEBU INH ×4 (01:34→18:34)
[2024-11-07] MEDS: ACETAMINOPHEN 325 MG TABLET 650 MG PO ×2 (04:51→17:35)
[2024-11-07 06:11] LABS: Basophils # (Auto) 0.0 Thou/mm3 (0.0-0.2); Basophils % (Auto) 0 % (0-2.5); Eosinophils # (Auto) 0.5 Thou/mm3 (0.0-0.5); Eosinophils % (Auto) 5 % (0-10); Hematocrit 34.8 % (41.0-53.0); Hemoglobin 10.9 g/dL (13.5-16.0); Immature Granulocytes Auto 0.08 Thou/mm3 (0.00-0.00); Lymphocytes # (Auto) 1.3 Thou/mm3 (1.0-4.8); Lymphocytes % (Auto) 14 % (10-50); Mean Corpuscular HGB Conc 31.3 g/dl (31.0-37.0); Mean Corpuscular Hemoglobin 26.8 pg (25.0-35.0); Mean Corpuscular Volume 86 fL (80-100); Monocytes # (Auto) 1.1 Thou/mm3 (0.0-0.8); Monocytes % (Auto) 12 % (0-12); Neutrophils # (Auto) 6.5 Thou/mm3 (1.8-7.7); Neutrophils % (Auto) 68 % (37-80); Nucleated Red Blood Cell # 0.00 Thou/mm3 (0.00-0.00); Nucleated Red Blood Cell % 0 /100 WBC (0); Platelet Count 201 Thou/mm3 (140-440); RDW Standard Deviation 45.8 fL (35.1-43.9); Red Blood Count 4.06 Miln/mm3 (4.50-5.90); White Blood Count 9.5 Thou/mm3 (3.8-10.6)
[2024-11-07 06:36] LABS: Alanine Aminotransferase 64 U/L (10-49); Albumin, Serum 3.3 gm/dL (3.4-4.8); Albumin/Globulin Ratio 1.3 (1.2-2.2); Alkaline Phosphatase 133 U/L (46-116); Anion Gap 8 (7-16); Aspartate Amino Transferase 27 U/L (0-34); BUN/Creatinine Ratio 14 Ratio (12-20); Bilirubin,Total 0.7 mg/dL (0.3-1.2); Blood Urea Nitrogen 11 mg/dL (9-23); Calcium 8.3 mg/dL (8.3-10.6); Calcium (Corrected) 8.9 mg/dL (8.5-10.1); Carbon Dioxide 31.1 mMol/L (20.0-31.0); Chloride 100 mMol/L (98-107); Creatinine (Component) 0.8 mg/dL (0.6-1.3); Estimated Creatinine Clearance 117.1 mL/min (>60); Globulin 2.5 gm/dL (2.3-3.5); Glucose 136 mg/dL (74-106); Magnesium 1.9 mg/dL (1.6-2.6); Osmolality,Calculated 278 (275-295); Phosphorous 3.4 mg/dL (2.4-5.1); Potassium 4.3 mMol/L (3.4-5.1); Sodium 139 mMol/L (136-145); Total Protein 5.8 gm/dL (5.7-8.2); eGFR > 60 See Note
[2024-11-07] MEDS: OSELTAMIVIR 75 MG CAPSULE PO ×2 (08:21→20:33)
[2024-11-07] MEDS: PANTOPRAZOLE 40 MG TABLET PO (08:21)
[2024-11-07] MEDS: ENOXAPARIN SOD INJ 40 MG/0.4 ML SYRINGE SC (08:21)
[2024-11-07] MEDS: cefTRIAXone/D5w 1gm IV premix 1 GM/50 ML BAG IV (08:21)
--- NOTE | 2024-11-07 14:47 | PC.SS ---
1447-Per afternoon rounding, attending physician wants home O2 for the pt. ASW contacted the assigned RN to conduct the O2 test, as it is needed for insurance AUTH. Assigned RN will proceed with the O2 test for the pt. ASW informed assigned RN that parts data writer is off at 1630 and will be back tomorrow as well.
[2024-11-07] MEDS: AZITHROMYCIN INJ 500 MG in SODIUM CHLORIDE 0.9% 250 ML 250 ML 250 MG IV (15:01)
--- NOTE | 2024-11-07 15:18 | ESPR_ITS ---
<Statement entered by Duong Varela MD - 11/11/24 14:37> I reviewed above note and agree with findings and plans. I have also personally examined the patient with medicine team and went over assessment and plan with medical team including sales management intern and resident physician. <Statement entered by Carolina Billings MD - 11/07/24 17:25> Patient was seen and examined at bedside. I agree on the assessment and plan on this note as documented by resident Judith Herring PGY1. Patient seen and examined at bedside, patient's respiratory status has improved remarkably, patient currently stable on 3 L nasal cannula, currently on Tamiflu and IV ceftriaxone and azithromycin, last dose of azithromycin in AM. Patient tested negative for HIV, patient likely has underlying lung etiology high suspicion of ILD versus obstructive pulmonary disease. Patient should follow-up outpatient with wood heel flap inserter, currently patient receiving DuoNeb breathing treatments every 6 hours, consider discharging patient on inhaler likely Ellipta Anoro. Patient will possibly need home oxygen on discharge, otherwise cultures have been negative. Patient should receive total Tamiflu for duration of 7 days, considering patient's complicated underlying influenza. Continue sliding scale insulin, monitor fingerstick. Disposition telemetry, will plan for discharge in a.m., anticipate discharge in next 24 to 48 hours. Case discussed with attending Dr. Avery Billings MD PGY-2 Documentation for date of: 11/07/24 Subjective Subjective Interval history: 59-year-old male past medical history of diabetes type 2, gastritis presented by PCP for management of low O2 saturation. Admitted for acute hypoxic respiratory failure and further management. Overnight, no acute events. HIV test came back negative. Patient remains hemodynamically stable and maintaining adequate oxygenation saturation of 95% on 5 L of nasal cannula. The patient was seen and examined at bedside. He reports significant improvement in breathing.Saturating at 91% on 3 L nasal cannula. Exam Vital Signs Temp Pulse Resp BP Pulse Ox O2 Del Method O2 Flow Rate 98.6 F 91 20 116/75 97 Nasal Cannula 3 11/07/24 12:00 11/07/24 13:10 11/07/24 13:10 11/07/24 12:00 11/07/24 13:10 11/07/24 12:00 11/07/24 13:10 Narrative Exam Physical Exam General: Awake and in no acute distress. Conversational and non-toxic appearing. HEENT: Normocephalic, atraumatic, mucous membranes moist. Heart: Regular rate and rhythm, normal S1 and S2, no murmurs. Lungs: Right side crackles significantly improved, no use of accessory muscle. with no wheezing or crackles. Abdomen: Soft, nondistended, nontender, positive bowel sounds. ?No guarding or rebound tenderness. Neurologic: Alert and oriented x3, no gross neurological deficit, and patient able to move all 4 extremities. Extremities: edema resolved Skin: No rash or ecchymoses. Objective Labs 11/07/24 05:24 11/07/24 05:24 Labs: Laboratory Results - last 24 hr 11/07/24 05:24 WBC 9.5 RBC 4.06 L Hgb 10.9 L Hct 34.8 L MCV 86 MCH 26.8 MCHC 31.3 RDW Std Deviation 45.8 H Plt Count 201 Neut % (Auto) 68 Lymph % (Auto) 14 [facility] % (Auto) 12 Eos % (Auto) 5 Baso % (Auto) 0 Neut # (Auto) 6.5 Lymph # (Auto) 1.3 [facility] # (Auto) 1.1 H Eos # (Auto) 0.5 Baso # (Auto) 0.0 Immature Gran # (Auto) 0.08 H Absolute Nucleated RBC 0.00 Immature Gran % 1 H Nucleated RBC % 0 Sodium 139 Potassium 4.3 Chloride 100 Carbon Dioxide 31.1 H Anion Gap 8 BUN 11 Creatinine 0.8 Estim Creat Clear Calc 117.1 eGFR > 60 BUN/Creatinine Ratio 14 Glucose 136 H Calculated Osmolality 278 Calcium 8.3 Corrected Calcium 8.9 Phosphorus 3.4 Magnesium 1.9 Total Bilirubin 0.7 AST 27 ALT 64 H Alkaline Phosphatase 133 H Total Protein 5.8 Albumin 3.3 L Globulin 2.5 Albumin/Globulin Ratio 1.3 ABG Interpretation ABG results: 11/05/24 01:24 ABG pH 7.39 ABG pCO2 45 ABG pO2 67 L ABG HCO3 27 H ABG O2 Saturation 93 ABG Base Excess 2 Quality Measures Quality Measures VTE prophylaxis Assessment & Plan Assessment Current Active Medications: Generic Name Dose Route Start Last Admin Trade Name Freq PRN Reason Stop Dose Admin Acetaminophen 650 mg 11/04/24 22:46 Acetaminophen 325 Mg Tablet PO 12/04/24 22:45 Q6H PRN Fever >100.4 Acetaminophen 650 mg 11/04/24 22:46 11/07/24 04:51 Acetaminophen 325 Mg Tablet PO 12/04/24 22:45 650 mg Q6H PRN Administration PAIN SCALE 1-3 (mild Hydrocodone Bitart/Acetaminophen 1 tab 11/04/24 22:46 Hydrocodone/Apap 5/325 Tablet PO 11/09/24 22:45 Q4HR PRN PAIN SCALE 4-6 (Moderate Albuterol/Ipratropium 3 ml 11/05/24 19:00 11/07/24 13:08 Albuterol/Ipratropium (Duoneb) Rt Genny 3 Ml Nebu INH 12/05/24 18:59 3 ml Q6HRRT CHRISTA Administration Dextrose 25 ml 11/04/24 23:12 Dextrose 50%-Water Inj 50 Ml Syringe IV 12/04/24 23:11 Q15MIN PRN BG 50-70 responsive npo pt Dextrose 50 ml 11/04/24 23:12 Dextrose 50%-Water Inj 50 Ml Syringe IV 12/04/24 23:11 Q15MIN PRN BG <50 OR BG <70 & pt unresponsive Enoxaparin Sodium 40 mg 11/05/24 09:00 11/07/24 08:21 Enoxaparin Sod Inj 40 Mg/0.4 Ml Syringe SC 11/19/24 08:59 40 mg QDAY CHRISTA Administration Glucagon 1 mg 11/04/24 23:12 Glucagon Inj 1 Mg Vial IM Q15MIN PRN BG <70, and no IV access Azithromycin 500 mg/ Sodium 250 mls @ 250 mls/hr 11/05/24 14:00 11/07/24 15:01 Chloride IV 11/08/24 13:59 250 mls/hr QDAY@1400 CHRISTA Administration Ceftriaxone Sodium/Dextrose 1 gm in 50 mls @ 100 mls/hr 11/05/24 16:08 11/07/24 08:21 Rocephin/D5w 1gm Iv Premix IV 11/12/24 16:07 100 mls/hr QDAY CHRISTA Administration Insulin Human Lispro 0 unit 11/06/24 21:00 11/07/24 11:54 Insulin Lispro (Admelog) 1 Unit/0.01 Ml Unit SC 12/06/24 20:59 Not Given ACHS CHRISTA Protocol Ondansetron HCl 4 mg 11/04/24 22:46 Ondansetron Inj 2 Mg/Ml Inj 2 Ml IVP 12/04/24 22:45 Q6H PRN NAUSEA OR VOMITING Protocol Oseltamivir Phosphate 75 mg 11/05/24 09:00 11/07/24 08:21 Oseltamivir 75 Mg Capsule PO 11/12/24 08:59 75 mg BID CHRISTA Administration Pantoprazole Sodium 40 mg 11/05/24 09:00 11/07/24 08:21 Pantoprazole 40 Mg Tablet PO 12/05/24 08:59 40 mg QDAY CHRISTA Administration Sennosides 1 tab 11/04/24 22:46 Senna Tablet PO 12/04/24 22:45 QDAY PRN constipation Protocol Plan 59-year-old male past medical history of diabetes type 2, gastritis presented by PCP for management of low O2 saturation. Admitted for acute hypoxic respiratory failure and further management. # Acute acute hypoxic respiratory failure 2/2 superimposed bacterial pneumonia #Influenza Pneumonitis # Influenza B positive On admision, positive Flu B test. Severe hypoxia (SpO2 45-50% at PCP), currently requiring 15L OxyMask, patient reports shortness of breath unrelieved by albuterol nebulizer. CXR shows diffuse bilateral pneumonia (R>L), likely viral + possible bacterial superinfection. 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 This occupational exposure may contribute to increased risk of respiratory infection including pneumonia. Plan - Continue Tamiflu 75 p.o. 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 Also showed large left pleural effusion with atelectasis of left lower lobe. Patient BNP on admission was elevated 553, troponin was 0.415 downtrending to 0.178, concern for possible exacerbated cardiomyopathy. Thoracentesis drained 2.6 L serosanguinous. Pleural fuid analysis, per light criteria was exudative pleural effusion. Repeat x-ray after thoracentesis does show improvement. Plan - Pending cytology analysis - Pending Echo to r/o cardiogenic edema - Continue to monitor vital and expiratory status - Continue antibiotic regimen - Continue incentive spirometry treatment - Patient advised to follow-up pulmonology for possible interstitial lung disease evaluation # Non-insulin depende Type 2 diabetes mellitus Patient is home medication Jardiance. A1c is on admsiion was 6.6 and fingerstick blood glucose is 167 high. Blood glucose elevated but well- controlled. Plan - Continue insulin sliding scale - Continue to monitor glucose level # Acute Liver injury- resolving # Metabolic dysfunction -Associated hepatic liver disease (MASLD) Elevated AST (51),ALT (98), likely due to systemic illness, hypoxia, or viral etiology. Liver enlarged with irregular contour on CT scan. Patient meets criteria for MASLD due to the presence of elevated liver enzyme but stable, elevated BMI, and documented history of diabetes, all of which are consistent underlie metabolic dysfunction. Plan: - Continue to trend LFTs - Avoid hepatotoxic drugs - Monitor for signs of liver dysfunction Hospital management: Lines: peripheral IV Diet: Carb consistent low Bowel: Senna GI prophylaxis: Protonix DVT prophylaxis: Enoxaparin Disposition: Tele bed, monitoring AHRF and weaning oF O2 high level. CODE STATUS: Full code Patient seen and assessed under supervision of attending physician Dr. Varela and discuss with senior resident Dr. Billings PGY-2 Judith Herring MD PGY-1, Internal Medicine
[2024-11-07] MEDS: INSULIN LISPRO (AdmeLOG) 1 UNIT/0.01 ML UNIT SC (20:33)
[2024-11-08] VITALS (12 sets, daily range): BP systolic 103–125; BP diastolic 62–75; PULSE 86–100; RESP 16–24; TEMP 36.2–36.8; O2SAT 95–100; BMI 28.0
[2024-11-08] MEDS: ALBUTEROL/IPRATROPIUM (Duoneb) RT SOL 3 ML NEBU INH ×4 (00:36→18:55)
[2024-11-08 06:13] LABS: Basophils # (Auto) 0.0 Thou/mm3 (0.0-0.2); Basophils % (Auto) 1 % (0-2.5); Eosinophils # (Auto) 0.6 Thou/mm3 (0.0-0.5); Eosinophils % (Auto) 7 % (0-10); Hematocrit 36.1 % (41.0-53.0); Hemoglobin 11.1 g/dL (13.5-16.0); Immature Granulocytes Auto 0.05 Thou/mm3 (0.00-0.00); Lymphocytes # (Auto) 1.2 Thou/mm3 (1.0-4.8); Lymphocytes % (Auto) 14 % (10-50); Mean Corpuscular HGB Conc 30.7 g/dl (31.0-37.0); Mean Corpuscular Hemoglobin 26.2 pg (25.0-35.0); Mean Corpuscular Volume 85 fL (80-100); Monocytes # (Auto) 0.8 Thou/mm3 (0.0-0.8); Monocytes % (Auto) 9 % (0-12); Neutrophils # (Auto) 5.8 Thou/mm3 (1.8-7.7); Neutrophils % (Auto) 69 % (37-80); Nucleated Red Blood Cell # 0.00 Thou/mm3 (0.00-0.00); Nucleated Red Blood Cell % 0 /100 WBC (0); Platelet Count 241 Thou/mm3 (140-440); RDW Standard Deviation 45.9 fL (35.1-43.9); Red Blood Count 4.23 Miln/mm3 (4.50-5.90); White Blood Count 8.5 Thou/mm3 (3.8-10.6)
[2024-11-08 07:10] LABS: Alanine Aminotransferase 60 U/L (10-49); Albumin, Serum 3.5 gm/dL (3.4-4.8); Albumin/Globulin Ratio 1.3 (1.2-2.2); Alkaline Phosphatase 137 U/L (46-116); Anion Gap 9 (7-16); Aspartate Amino Transferase 26 U/L (0-34); BUN/Creatinine Ratio 16 Ratio (12-20); Bilirubin,Total 0.5 mg/dL (0.3-1.2); Blood Urea Nitrogen 11 mg/dL (9-23); Calcium 8.6 mg/dL (8.3-10.6); Calcium (Corrected) 9.0 mg/dL (8.5-10.1); Carbon Dioxide 29.0 mMol/L (20.0-31.0); Chloride 101 mMol/L (98-107); Creatinine (Component) 0.7 mg/dL (0.6-1.3); Estimated Creatinine Clearance 133.5 mL/min (>60); Globulin 2.8 gm/dL (2.3-3.5); Glucose 131 mg/dL (74-106); Magnesium 1.7 mg/dL (1.6-2.6); Osmolality,Calculated 278 (275-295); Potassium 4.7 mMol/L (3.4-5.1); Sodium 139 mMol/L (136-145); Total Protein 6.3 gm/dL (5.7-8.2); eGFR > 60 See Note
[2024-11-08] MEDS: ENOXAPARIN SOD INJ 40 MG/0.4 ML SYRINGE SC (08:34)
[2024-11-08] MEDS: OSELTAMIVIR 75 MG CAPSULE PO ×2 (08:35→20:29)
[2024-11-08] MEDS: cefTRIAXone/D5w 1gm IV premix 1 GM/50 ML BAG IV (08:35)
[2024-11-08] MEDS: PANTOPRAZOLE 40 MG TABLET PO (08:35)
--- NOTE | 2024-11-08 11:13 | XR_ITS ---
Examination: AP chest single view FINDINGS: AP portable sitting chest single view Date and time: November 08, 2024, 1138 hours Comparison November 05, 2024 INDICATIONS: Shortness of breath today. FINDINGS: Diffuse right lung opacity consistent with pneumonia Mild prominence left ventricle with prominent vascular congestion More subtle opacity in the left lung Prominent osteopenia IMPRESSION: Bilateral pneumonia, diffuse and extensive in the right lung Suspicious for mild associated heart failure
--- NOTE | 2024-11-08 11:39 | PC.NURSE ---
PT'S SPO2 ON RA AT REST WAS 92%, ON AMBULATION PT'S SPO2 WENT DOWN TO 72%, PT WAS PLACED BACK ON O2 @ 5L/M VIA NC. PT SPO2 CAME BACK UP TO 96%.
--- NOTE | 2024-11-08 11:41 | ESPR_ITS ---
<Statement entered by Duong Varela MD - 11/11/24 14:38> I reviewed above note and agree with findings and plans. I have also personally examined the patient with medicine team and went over assessment and plan with medical team including internet application developer and resident physician. <Statement entered by Jacob Carpenter MD - 11/08/24 21:53> Pt is seen at bedside, Currently saturating on 5L O2 via oxymask. Pt endorses to feeling signicantly better, SOB have improved. Will continue IV antibiotics and Oral tamiflu today and anticipate discharge tomorrow once home oxygen is delivered. Patient was seen and examined by me personally. I have directly supervised and reviewed documentation by the team resident and agree with its findings. ------- Plan of care was discussed with the attending, Dr. Avery Carpenter, PGY-2 Documentation for date of: 11/08/24 Subjective Subjective Interval history: Overnight events: No acute events overnight. Patient was seen and examined at bedside. AM vitals and labs reviewed. Discussed concerns of ILD vs obstructive pulmonary disease with patient and family. Highly recommended follow-up with outpatient pulmonology after discharge. Family hoping to find a more definitive treatment for patient's lung disease. Will continue to monitor breathing status. Continuing Rocephin, completing Azithromycin today, continuing Tamiflu. Likely to discharge tomorrow if oxygenation status stable. Review of systems otherwise negative except for what is mentioned above. Exam Vital Signs Temp Pulse Resp BP Pulse Ox O2 Del Method O2 Flow Rate 97.4 F 94 18 116/75 97 Oxy Mask 5 11/08/24 08:00 11/08/24 08:00 11/08/24 08:00 11/08/24 08:00 11/08/24 08:00 11/08/24 08:00 11/08/24 08:00 Narrative Exam Physical Exam: General: Alert, no acute distress. Skin: Warm, dry, intact, no obvious rash. Head: Normocephalic, atraumatic. Eye: Normal conjunctiva, PERRL. Throat: Oral mucosa moist. No obvious lesions in oropharynx. Cardiovascular: Regular rate and rhythm, no murmur, +S1/S2. Respiratory: Respirations unlabored on Oxy Mask, crackles bilaterally worse on right, no wheezing. Gastrointestinal: Soft, nontender, non-distended. No guarding or rebound tenderness. Extremities: No edema, no cyanosis, no clubbing. 2+ radial pulse bilaterally, 2+ pedal pulse bilaterally. Neuro: No focal deficits observed. Conversant, moving all extremities. No overt cerebellar signs/incoordination. Psychiatric: Cooperative, appropriate affect. Objective Labs 11/08/24 05:32 11/08/24 05:32 Labs: Laboratory Results - last 24 hr 11/08/24 05:32 WBC 8.5 RBC 4.23 L Hgb 11.1 L Hct 36.1 L MCV 85 MCH 26.2 MCHC 30.7 L RDW Std Deviation 45.9 H Plt Count 241 D Neut % (Auto) 69 Lymph % (Auto) 14 [place] % (Auto) 9 Eos % (Auto) 7 Baso % (Auto) 1 Neut # (Auto) 5.8 Lymph # (Auto) 1.2 [place] # (Auto) 0.8 Eos # (Auto) 0.6 H Baso # (Auto) 0.0 Immature Gran # (Auto) 0.05 H Absolute Nucleated RBC 0.00 Immature Gran % 1 H Nucleated RBC % 0 Sodium 139 Potassium 4.7 Chloride 101 Carbon Dioxide 29.0 Anion Gap 9 BUN 11 Creatinine 0.7 Estim Creat Clear Calc 133.5 eGFR > 60 BUN/Creatinine Ratio 16 Glucose 131 H Calculated Osmolality 278 Calcium 8.6 Corrected Calcium 9.0 Magnesium 1.7 Total Bilirubin 0.5 AST 26 ALT 60 H Alkaline Phosphatase 137 H Total Protein 6.3 Albumin 3.5 Globulin 2.8 Albumin/Globulin Ratio 1.3 ABG Interpretation ABG results: 11/05/24 01:24 ABG pH 7.39 ABG pCO2 45 ABG pO2 67 L ABG HCO3 27 H ABG O2 Saturation 93 ABG Base Excess 2 Quality Measures Quality Measures VTE prophylaxis Assessment & Plan Assessment Current Active Medications: Generic Name Dose Route Start Last Admin Trade Name Freq PRN Reason Stop Dose Admin Acetaminophen 650 mg 11/04/24 22:46 Acetaminophen 325 Mg Tablet PO 12/04/24 22:45 Q6H PRN Fever >100.4 Acetaminophen 650 mg 11/04/24 22:46 11/07/24 17:35 Acetaminophen 325 Mg Tablet PO 12/04/24 22:45 650 mg Q6H PRN Administration PAIN SCALE 1-3 (mild Hydrocodone Bitart/Acetaminophen 1 tab 11/04/24 22:46 Hydrocodone/Apap 5/325 Tablet PO 11/09/24 22:45 Q4HR PRN PAIN SCALE 4-6 (Moderate Albuterol/Ipratropium 3 ml 11/05/24 19:00 11/08/24 06:53 Albuterol/Ipratropium (Duoneb) Rt Genny 3 Ml Nebu INH 12/05/24 18:59 3 ml Q6HRRT CHRISTA Administration Dextrose 25 ml 11/04/24 23:12 Dextrose 50%-Water Inj 50 Ml Syringe IV 12/04/24 23:11 Q15MIN PRN BG 50-70 responsive npo pt Dextrose 50 ml 11/04/24 23:12 Dextrose 50%-Water Inj 50 Ml Syringe IV 12/04/24 23:11 Q15MIN PRN BG <50 OR BG <70 & pt unresponsive Enoxaparin Sodium 40 mg 11/05/24 09:00 11/08/24 08:34 Enoxaparin Sod Inj 40 Mg/0.4 Ml Syringe SC 11/19/24 08:59 40 mg QDAY CHRISTA Administration Glucagon 1 mg 11/04/24 23:12 Glucagon Inj 1 Mg Vial IM Q15MIN PRN BG <70, and no IV access Azithromycin 500 mg/ Sodium 250 mls @ 250 mls/hr 11/05/24 14:00 11/07/24 19:19 Chloride IV 11/08/24 13:59 Infused QDAY@1400 CHRISTA Infusion Ceftriaxone Sodium/Dextrose 1 gm in 50 mls @ 100 mls/hr 11/05/24 16:08 11/08/24 08:35 Rocephin/D5w 1gm Iv Premix IV 11/12/24 16:07 100 mls/hr QDAY CHRISTA Administration Insulin Human Lispro 0 unit 11/06/24 21:00 11/08/24 11:15 Insulin Lispro (Admelog) 1 Unit/0.01 Ml Unit SC 12/06/24 20:59 Not Given ACHS [facility] Protocol Ondansetron HCl 4 mg 11/04/24 22:46 Ondansetron Inj 2 Mg/Ml Inj 2 Ml IVP 12/04/24 22:45 Q6H PRN NAUSEA OR VOMITING Protocol Oseltamivir Phosphate 75 mg 11/05/24 09:00 11/08/24 08:35 Oseltamivir 75 Mg Capsule PO 11/12/24 08:59 75 mg BID CHRISTA Administration Pantoprazole Sodium 40 mg 11/05/24 09:00 11/08/24 08:35 Pantoprazole 40 Mg Tablet PO 12/05/24 08:59 40 mg QDAY CHRISTA Administration Sennosides 1 tab 11/04/24 22:46 Senna Tablet PO 12/04/24 22:45 QDAY PRN constipation Protocol Plan 59-year-old male past medical history of diabetes type 2, gastritis presented by PCP for management of low O2 saturation. Admitted for acute hypoxic respiratory failure and further management. # Acute acute hypoxic respiratory failure 2/2 superimposed bacterial pneumonia #Influenza Pneumonitis # Influenza B positive On admision, positive Flu B test. Severe hypoxia (SpO2 45-50% at PCP), currently requiring 15L OxyMask, patient reports shortness of breath unrelieved by albuterol nebulizer. CXR shows diffuse bilateral pneumonia (R>L), likely viral + possible bacterial superinfection. 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 This occupational exposure may contribute to increased risk of respiratory infection including pneumonia. Plan - Continue Tamiflu 75 p.o. 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 Also showed large left pleural effusion with atelectasis of left lower lobe. Patient BNP on admission was elevated 553, troponin was 0.415 downtrending to 0.178, concern for possible exacerbated cardiomyopathy. Thoracentesis drained 2.6 L serosanguinous. Pleural fuid analysis, per light criteria was exudative pleural effusion. Repeat x-ray after thoracentesis does show improvement. Plan - Pending cytology analysis - Pending Echo to r/o cardiogenic edema - Continue to monitor vital and expiratory status - Continue antibiotic regimen - Continue incentive spirometry treatment - Patient advised to follow-up pulmonology for possible interstitial lung disease evaluation # Non-insulin depende Type 2 diabetes mellitus Patient is home medication Jardiance. A1c is on admsiion was 6.6 and fingerstick blood glucose is 167 high. Blood glucose elevated but well- controlled. Plan - Continue insulin sliding scale - Continue to monitor glucose level # Acute Liver injury- resolving # Metabolic dysfunction -Associated hepatic liver disease (MASLD) Elevated AST (51),ALT (98), likely due to systemic illness, hypoxia, or viral etiology. Liver enlarged with irregular contour on CT scan. Patient meets criteria for MASLD due to the presence of elevated liver enzyme but stable, elevated BMI, and documented history of diabetes, all of which are consistent underlie metabolic dysfunction. Plan: - Continue to trend LFTs - Avoid hepatotoxic drugs - Monitor for signs of liver dysfunction Hospital management: Lines: peripheral IV Diet: Carb consistent low Bowel: Senna GI prophylaxis: Protonix DVT prophylaxis: Enoxaparin Disposition: Tele bed, monitoring AHRF and weaning oF O2 high level. CODE STATUS: Full code Patient plan of care was discussed with the senior resident Dr. Carpenter (PGY-2) and attending physician Dr. Varela. Dominguez Rodriguez, PGY1
[2024-11-08] MEDS: FUROSEMIDE INJ 10 MG/ML 4ML VIAL 40 MG IVP (11:59)
--- NOTE | 2024-11-08 14:38 | PC.SS ---
Addendum entered by Savanna Stephenson 11/08/24 15:48: [facility] has accepted DME oxygen order and will deliver at bedside 11/09/24. SS to follow up and confirm delivery time. Addendum entered by Savanna Stephenson 11/08/24 15:46: [facility] stated they can provide home oxygen. DME referral also submitted on [facility] to [facility], [facility], [facility], [facility], and [facility]. Original Note: Rounding note: On IV antibiotics, possibly discharging 11/09/24. Patient discharging home when medically clear. Home oxygen pending.
--- NOTE | 2024-11-08 17:55 | PC.NURSE ---
11/07/24- 0- patient oxygen saturation 84% with ambulation, o2sats @ rest 85% on room air, o2sats with o2- 94%.
[2024-11-09 00:46] VITALS: PULSE 96; PULSE 97; RESP 18; RESP 20; O2SAT 99
[2024-11-09] MEDS: ALBUTEROL/IPRATROPIUM (Duoneb) RT SOL 3 ML NEBU INH ×3 (00:46→13:01)
[2024-11-09] MEDS: ACETAMINOPHEN 325 MG TABLET 650 MG PO (02:06)
[2024-11-09 04:00] VITALS: BP 114/72; PULSE 94; RESP 18; TEMP 36.1; O2SAT 99
[2024-11-09 05:41] VITALS: BMI 28.0
[2024-11-09 06:35] VITALS: PULSE 93; PULSE 94; RESP 16; RESP 20; O2SAT 100; O2SAT 98
[2024-11-09 06:38] LABS: Basophils # (Auto) 0.1 Thou/mm3 (0.0-0.2); Basophils % (Auto) 1 % (0-2.5); Eosinophils # (Auto) 0.6 Thou/mm3 (0.0-0.5); Eosinophils % (Auto) 8 % (0-10); Hematocrit 37.7 % (41.0-53.0); Hemoglobin 11.6 g/dL (13.5-16.0); Immature Granulocytes Auto 0.05 Thou/mm3 (0.00-0.00); Lymphocytes # (Auto) 1.2 Thou/mm3 (1.0-4.8); Lymphocytes % (Auto) 16 % (10-50); Mean Corpuscular HGB Conc 30.8 g/dl (31.0-37.0); Mean Corpuscular Hemoglobin 26.1 pg (25.0-35.0); Mean Corpuscular Volume 85 fL (80-100); Monocytes # (Auto) 0.8 Thou/mm3 (0.0-0.8); Monocytes % (Auto) 11 % (0-12); Neutrophils # (Auto) 4.7 Thou/mm3 (1.8-7.7); Neutrophils % (Auto) 64 % (37-80); Nucleated Red Blood Cell # 0.00 Thou/mm3 (0.00-0.00); Nucleated Red Blood Cell % 0 /100 WBC (0); Platelet Count 270 Thou/mm3 (140-440); RDW Standard Deviation 44.3 fL (35.1-43.9); Red Blood Count 4.45 Miln/mm3 (4.50-5.90); White Blood Count 7.3 Thou/mm3 (3.8-10.6)
[2024-11-09 07:00] LABS: Alanine Aminotransferase 70 U/L (10-49); Albumin, Serum 3.7 gm/dL (3.4-4.8); Albumin/Globulin Ratio 1.2 (1.2-2.2); Alkaline Phosphatase 133 U/L (46-116); Anion Gap 8 (7-16); Aspartate Amino Transferase 42 U/L (0-34); BUN/Creatinine Ratio 16 Ratio (12-20); Bilirubin,Total 0.5 mg/dL (0.3-1.2); Blood Urea Nitrogen 13 mg/dL (9-23); Calcium 9.6 mg/dL (8.3-10.6); Calcium (Corrected) 9.8 mg/dL (8.5-10.1); Carbon Dioxide 31.1 mMol/L (20.0-31.0); Chloride 100 mMol/L (98-107); Creatinine (Component) 0.8 mg/dL (0.6-1.3); Estimated Creatinine Clearance 116.8 mL/min (>60); Globulin 3.1 gm/dL (2.3-3.5); Glucose 128 mg/dL (74-106); Magnesium 2.2 mg/dL (1.6-2.6); Osmolality,Calculated 279 (275-295); Potassium 4.2 mMol/L (3.4-5.1); Sodium 139 mMol/L (136-145); Total Protein 6.8 gm/dL (5.7-8.2); eGFR > 60 See Note
[2024-11-09 08:00] VITALS: BP 118/76; PULSE 102; PULSE 90; RESP 20; TEMP 36.2; O2SAT 97
--- NOTE | 2024-11-09 09:22 | PC.SS ---
Follow up note: SS spoke to Elizabeth from [facility] who states they will deliver home O2 concentrator and small O2 tanks to hospital. Pt is ready for d/c today and will return home.
[2024-11-09] MEDS: PANTOPRAZOLE 40 MG TABLET PO (09:25)
[2024-11-09] MEDS: OSELTAMIVIR 75 MG CAPSULE PO (09:25)
[2024-11-09] MEDS: cefTRIAXone/D5w 1gm IV premix 1 GM/50 ML BAG IV (09:25)
[2024-11-09] MEDS: ENOXAPARIN SOD INJ 40 MG/0.4 ML SYRINGE SC (09:32)
--- NOTE | 2024-11-09 11:32 | ESDS_ITS ---
<Statement entered by Duong Varela MD - 11/12/24 09:12> I reviewed above note and agree with findings and plans. I have also personally examined the patient with medicine team and went over assessment and plan with medical team including social media intern and resident physician. <Statement entered by Carolina Billings MD - 11/09/24 18:24> Patient was seen and examined by me personally. I have reviewed the below documentation by the team resident and agree with its findings. Discharge plan was discussed with the attending, Dr. Varela 59-year-old male with past medical history of type 2 diabetes mellitus and gastritis presented to [facility] emergency department for shortness of breath was found to have acute hypoxic respiratory failure, positive for influenza B. CTA in emergency department showed bilateral pneumonia and left lung pleural effusion. Patient CT changes consistent with groundglass opacities likely secondary to flu, patient had thoracentesis done on November 05, 2024 at about 2.3 L drained, exudative etiology cytology negative for any malignancy. Patient's oxygen requirement significantly down trended from 15 L to eventually 3, patient received Tamiflu and IV antibiotics for underlying infection, further plan is to discharge patient home on home oxygen, patient advised to use inhaler for as needed shortness of breath complete antibiotic treatment and antiviral treatment, continue Januvia and outpatient management of diabetes. Patient to follow-up with primary care and obtain referral for pulmonology, otherwise currently no complaints. Is stable for discharge, responded well to hospital treatment. Carolina Billings MD Internal Medicine, PGY-2 Planned Discharge Date 11/09/24 DS: Providers Provider Date of admission: 11/04/24 20:58 Primary care physician: Alfredo Ernst PA-C Admitting Provider: Oscar Pulido MD Attending Provider on Admission: Duong Varela MD Consults: 11/05/24 11:49 Referral Physical Therapy Routine Comment: Physician Instructions: Attending Provider on DC: Dr. Duong Varela MD Discharging Provider: Dr. Duong Varela MD Anticipated date of discharge: 11/09/24 DS: Diagnosis Problem List Completed Was Problem List Reviewed/Reconciled?: Yes Hospital Course Hospital Course Hospital course: Summary Mr. Ryder, a 59-year-old male past medical history of type 2 diabetes, gastritis was sent to the ED by PCP for for O2 saturation in the 50s, admitted for acute hypoxic respiratory failure. In the ED patient was saturating at 93% on 15 L OxyMax, tachycardic and tachypneic. CT chest was positive for extensive bilateral pneumonia left left pleural effusion, left lower lobe atelectasis CTA rule out pulmonary embolism. BNP was elevated. Troponin was elevated. Tested positive for influenza B. Cultures negative, HIV test negative. Was started on ceftriaxone, azithromycin, oseltamivir, dexamethasone and received one-time dose of aspirin. Thoracentesis was done on 11/05/2024, drained 2.3 L of serosanguineous fluid. Pleural fluid analysis was exudative , and high suspicion for possible malignancy. Encourage patient to follow-up outpatient pulmonology. Patient reported significantly improved breathing postthoracentesis. Due to concerns of possible fluid overload status and possible underlying cardiogenic edema pt given Lasix, strict PETEY'S. During progression hospital course patient noted significant improvement in the leg swelling, shortness of breath improved significantly, O2 requirement continues to decrease. Patient blood glucose was well-controlled insulin sliding scale. Patient transaminitis was downtrending. Patient completed an inpatient antibiotic course. Patient stable bedside currently saturating on 5 L O2 oxygen mask and bis condition improved remarkably with progression of hospital course. Further plan to discharge the patient home since he is stable and responded well to possible treatment. Discharge recommendation: - Follow-up with PCP within 1-2 week of discharge - Discussed's concern of possible interstitial lung disease with patient and family. Highly recommended follow-up with outpatient pulmonology after discharge - Need outpatient referral for Pulmonolgy to valuate for ILD - Need outpatient workup for Cadiology, follow up with PCP - Follow-up with primary care for pleural fluid cytology analysis - Use inhaler as needed for shortness of breath - Complete course of Tamiflu 75mg PO BID - Complete antibiotic : Doxycycline 100 mg p.o. twice daily Amoxicillin/clavulanate 875/125 mg p.o. twice daily - Supplemental oxygen at home, keep goal spO2 > 92 - Return to the ED or call EMS is symptoms return and/or worsen Hospital Diagnoses: #Acute hypoxic respiratory failure secondary to superimposed bacterial pneumonia #Influenza pneumonitis #Influenza B positive #Exudative pleural effusion s/p thoracentesis #Left pleural effusion with atelectasis #Underlying ILD versus COPD #Non-insulin dependent type 2 diabetes mellitus #Acute liver injury #Metabolic dysfunction-associated hepatic liver disease (MASLD) Patient seen and assessed under supervision of attending physician Dr. Varela and discuss with senior resident Dr. Billings PGY-2 Judith Herring MD PGY-1, Internal Medicine Time spent discussing smoking cessation with patient: more than 10 minutes Time Spent with Patient Time attestation: Total time spent providing and/or coordinating discharge services: Time spent: Greater than 30 minutes Exam Vital Signs Temp Pulse Resp BP Pulse Ox O2 Del Method O2 Flow Rate 97.2 F 90 20 118/76 97 Oxy Mask 4 11/09/24 08:00 11/09/24 08:00 11/09/24 08:00 11/09/24 08:00 11/09/24 08:00 11/09/24 08:00 11/09/24 08:00 Narrative Exam General: Awake and in no acute distress. Conversational and non-toxic appearing. HEENT: Normocephalic, atraumatic, mucous membranes moist. Heart: Regular rate and rhythm, normal S1 and S2, no murmurs. Lungs: Right side crackles significantly improved, no use of accessory muscle. with no wheezing or crackles. Abdomen: Soft, nondistended, nontender, positive bowel sounds. ?No guarding or rebound tenderness. Neurologic: Alert and oriented x3, no gross neurological deficit, and patient able to move all 4 extremities. Extremities: edema resolved Skin: No rash or ecchymoses. Discharge Plan Plan Patient Disposition: HOME (Self Care) Patient condition on transfer: Stable Care Plan Goals: -Use inhaler as needed for SOB -Complete antibiotics as prescribed -Complete course of Tamiflu -Need outpatient referral for Pulmonolgy to valuate for ILD -Need outpatient workup for Cadiology, follow up with PCP -Follow up with PCP in 1-2 weeks -Return to ED if symptoms worsen -Use suppl. Oxygen at home, keep goal spO2 > 92 Prescriptions/Referrals Prescriptions/Med Rec: New albuterol sulfate 90 mcg/actuation HFA aerosol inhaler 1 inh inhalation QID PRN (Reason: shortness of breath or wheezing) Qty: 8.5 3RF amoxicillin-pot clavulanate 875-125 mg tablet 1 tab PO BID 7 Days Qty: 14 0RF doxycycline hyclate 100 mg capsule 100 mg PO BID 7 Days Qty: 14 0RF oseltamivir [Tamiflu] 75 mg capsule 75 mg PO BID 5 Days Qty: 10 0RF Continued Januvia 25 mg tablet 25 mg PO QDAY Referrals: Alfredo Ernst PA-C [Primary Care Provider] - Patient/Caregiver Discharge Instructions Discharge Activity: activity as tolerated Education Materials: Thoracentesis Dc, The Flu (Influenza) Print Language: Japanese Stand Alone Forms: Yan[facility] Award Info., Patient Portal Info Letter Discharge Order Discharge Orders: Discharge (Routine); Ordered 11/09/24 Ordered By: Carolina Billings Quality Discharge Quality Measures VTE prophylaxis
[2024-11-09 12:00] VITALS: BP 117/72; PULSE 88; PULSE 93; RESP 13; TEMP 36.3; O2SAT 94
[2024-11-09 13:02] VITALS: PULSE 90; RESP 16; O2SAT 99
--- NOTE | 2024-11-09 14:15 | PC.NURSE ---
Pt discharged home via private vehicle; taken to main entrance via w/c accompanied by and RENAL DIALYSIS TECHNICIAN. IV dc'd w/o difficulty; pt tolerated well. D/C inst given to pt and his family w/ understanding expressed and questions answered.
[2024-11-12 06:27] LABS: Legionella Ag, EIA, Urine* NOT DETECTED
== END 2024-11-09 14:15 | disposition home or self-care (01) | DRG 720 ==
LOC: SERX 17:15 → SERHOLD 21:23 → S2NX 11-05 03:37
PROVIDERS: Admitting Provider Student in an Organized Health Care Education/Training Program; Emergency Provider Emergency Medicine; PCP Physician Assistant; Visit Provider Internal Medicine
DX: A41.9 Sepsis, unspecified organism (principal); J96.01 Acute respiratory failure with hypoxia; Z87.891 Personal history of nicotine dependence; J90 Pleural effusion, not elsewhere classified; J98.11 Atelectasis; I24.89 Other forms of acute ischemic heart disease; S36.119A Unspecified injury of liver, initial encounter; R74.01 Elevation of levels of liver transaminase levels; D64.89 Other specified anemias; R82.81 Pyuria; J15.9 Unspecified bacterial pneumonia; J10.08 Influenza due to other identified influenza virus with other specified pneumonia; E11.65 Type 2 diabetes mellitus with hyperglycemia; K76.9 Liver disease, unspecified; Z78.9 Other specified health status; Z79.4 Long term (current) use of insulin; D64.9 Anemia, unspecified; Z79.84 Long term (current) use of oral hypoglycemic drugs; Z99.81 Dependence on supplemental oxygen; W19.XXXA Unspecified fall, initial encounter
CPT/HCPCS: 36415; 36600; 71045; 71275; 80053; 80074; 81001; 82150; 82803; 82945; 83036; 83605; 83615; 83690; 83735; 83880; 84100; 84145; 84157; 84484; 85025; 85610; 85730; 86331; 86635; 86703; 87040; 87070; 87075; 87081; 87086; 87205; 87400; 87449; 87811; 89051; 93005; 94640; 96365; 96366; 96375; 97162; 99284; A4649; A9270; C1729; J0456; J0696; J1100; J1650; J1815; J1938; J7050; Q9967